=== PATIENT | female | born 1970 | race Caucasian/White ===

== ENCOUNTER 2020-03-28 12:56 | Emergency (ER) | payer OTHER ==
[2020-03-28 15:06] LABS: HEMOGLOBIN 14.2 gm/dl (12.3-15.3); RED BLOOD COUNT 4.81 M/UL (4.00-5.10); WHITE BLOOD COUNT 15.8 K/UL (4.5-11.0)
[2020-03-28 15:27] LABS: BUN/CREATININE RATIO 34 (0-10)
[2020-03-28] MEDS ORDERED: NORCO 5-325 TA1 EACH PO (16:36)
[2020-03-28] MEDS ORDERED: OMNICEF 300 MG300 MG PO (16:36)
== END 2020-03-28 16:50 | disposition home or self-care (01) ==
LOC: ER1 12:56
PROVIDERS: Emergency Medicine
DX: N13.2 Hydronephrosis with renal and ureteral calculous obstruction (principal); F17.200 Nicotine dependence, unspecified, uncomplicated
CPT/HCPCS: 80053; 81001; 83690; 84703; 85025; 87086; 96374; 96375; 99284; J0360; J1885; J2270; J2405; J7030